=== PATIENT | male | born 1965 | race Asian ===

== ENCOUNTER 2024-12-23 13:22 | Inpatient (IN) | payer MEDICAID ==
[~2024-12-23] VITALS: Ht 162.6 cm; Wt 84.8 kg
[2024-12-23 14:05] LABS: PLATELET COUNT (AUTO) 103 K/uL (150-450); RED BLOOD CELL COUNT(AUTO) 4.44 MIL/uL (4.50-5.90); RED CELL DISTRIBUTION WIDTH 12.2 % (11.5-14.5); WHITE BLOOD COUNT (AUTO) 10.0 K/uL (4.5-11.0)
[2024-12-23 14:17] LABS: CALCIUM, TOTAL 8.0 mg/dL (8.8-10.5); CREATININE 0.65 mg/dL (0.60-1.30); GLOMERULAR FILTR. RATE CALC > 60 mL/min (>60); GLUCOSE,RANDOM 193 mg/dL (70-110); UREA NITROGEN, BLOOD 9 mg/dL (7-18)
[2024-12-23 14:18] LABS: SODIUM SERUM 115 mmol/L (136-145)
[2024-12-23 14:21] LABS: ASPARTATE AMINOTRANSFERASE 136 U/L (15-37); TOTAL PROTEIN, SERUM 7.9 g/dL (6.4-8.2)
[2024-12-23 14:22] LABS: ALCOHOL, BLOOD (SERUM) < 3 mg/dL (0-10)
[2024-12-23 14:41] LABS: APPEARANCE,URINE CLEAR (CLEAR); GLUCOSE, URINE (UA) TRACE mg/dL (NEGATIVE); LEUKOCYTE ESTERASE ,URINE MODERATE (NEGATIVE); NITRATE,URINE NEGATIVE (NEGATIVE); OCCULT BLOOD,URINE TRACE (NEGATIVE); PH,URINE DRUG SCREEN 7.0 (5.0-8.0); SPECIFIC GRAVITIY, URINE 1.005 (1.003-1.030)
[2024-12-23] MEDS: ONDANSETRON HCL 4 MG/2 ML VIAL IVP ONE (14:45)
[2024-12-23] MEDS: LORazepam 2 MG/ML VIAL IVP ONE (14:45)
[2024-12-23 14:48] LABS: ALCOHOL, URINE DRUG SCREEN NEGATIVE (NEGATIVE); AMPHET/METH SCREEN,URINE NEGATIVE (NEGATIVE); BARBITURATE SCREEN, URINE NEGATIVE (NEGATIVE); CANNABINOID SCREEN,URINE NEGATIVE (NEGATIVE); COCAINE SCREEN,URINE NEGATIVE (NEGATIVE); METHADONE SCREEN, URINE NEGATIVE (NEGATIVE)
[2024-12-23 14:58] LABS: TROPONIN I-HIGH SENSITIVITY 18 ng/L (<76)
[2024-12-23] MEDS: MAGNESIUM SULFATE 2 GM, MVI, ADULT NO.1 WITH VIT K 10 ML, THIAMINE 100 MG, FOLIC ACID 1... IV ONE (15:08)
[2024-12-23] MEDS ORDERED: ACETAMINOPHEN 325 MG TABLET PO PRN (15:45)
[2024-12-23] MEDS ORDERED: ONDANSETRON HCL 4 MG/2 ML VIAL IVP PRN (15:45)
[2024-12-23] MEDS: HEPARIN SODIUM,PORCINE 5,000 UNITS/ML VIAL SQ SCH (16:12)
[2024-12-23 17:09] LABS: CALCIUM, TOTAL 8.0 mg/dL (8.8-10.5); CREATININE 0.55 mg/dL (0.60-1.30); GLOMERULAR FILTR. RATE CALC > 60 mL/min (>60); GLUCOSE,RANDOM 175 mg/dL (70-110); UREA NITROGEN, BLOOD 8 mg/dL (7-18)
[2024-12-23 17:14] LABS: SODIUM SERUM 119 mmol/L (136-145)
[2024-12-23] MEDS: WATER IV ONE (17:47)
[2024-12-23] MEDS: DEXTROSE 5% IV ONE (17:47)
[2024-12-23] MEDS: CHLORPROMAZINE HCL IV ONE (17:47)
[2024-12-23] MEDS: CefTRIAXone 1 GM/DEXTROSE 50 ML IV SCH (18:12)
[2024-12-23 20:00] VITALS: BP 103/72; PULSE 68; RESP 18; TEMP 97.5; O2SAT 99
[2024-12-23] MEDS: DOCUSATE SODIUM 100 MG CAPSULE PO SCH (20:59)
[2024-12-23] MEDS ORDERED: MAGNESIUM SULFATE 2 GM/WATER 50 ML IV PRN (21:15)
[2024-12-23] MEDS ORDERED: MAGNESIUM OXIDE 400 MG TABLET PO PRN (21:15)
[2024-12-23] MEDS: THIAMINE 100 MG TABLET PO SCH (21:15)
[2024-12-23] MEDS ORDERED: MAGNESIUM SULFATE 4 GM/WATER 100 ML IV PRN (21:15)
[2024-12-23] MEDS: VITAMIN B COMPLEX WITH C TABLET PO SCH (22:00)
[2024-12-23 22:04] LABS: CALCIUM, TOTAL 7.9 mg/dL (8.8-10.5); CREATININE 0.57 mg/dL (0.60-1.30); GLOMERULAR FILTR. RATE CALC > 60 mL/min (>60); GLUCOSE,RANDOM 185 mg/dL (70-110); UREA NITROGEN, BLOOD 8 mg/dL (7-18)
[2024-12-23] MEDS: LORazepam 2 MG/ML VIAL IVP PRN (22:07)
[2024-12-23 22:09] LABS: SODIUM SERUM 121 mmol/L (136-145)
[2024-12-23 23:42] VITALS: BP 122/92; PULSE 98; RESP 22; TEMP 97.5; O2SAT 98
[2024-12-24] MEDS ORDERED: SODIUM CHLORIDE 0.9% 500 ML IV ONE (01:33)
[2024-12-24] MEDS: POTASSIUM CHL 10 MEQ/WATER 50 ML IV PRN (01:43)
[2024-12-24 03:18] VITALS: BP 144/76; PULSE 98; RESP 20; TEMP 97.8; O2SAT 97
[2024-12-24 06:23] LABS: PLATELET COUNT (AUTO) 106 K/uL (150-450); RED BLOOD CELL COUNT(AUTO) 4.15 MIL/uL (4.50-5.90); RED CELL DISTRIBUTION WIDTH 12.3 % (11.5-14.5); WHITE BLOOD COUNT (AUTO) 8.6 K/uL (4.5-11.0)
[2024-12-24 06:38] LABS: CALCIUM, TOTAL 7.9 mg/dL (8.8-10.5); CREATININE 0.65 mg/dL (0.60-1.30); GLOMERULAR FILTR. RATE CALC > 60 mL/min (>60); GLUCOSE,RANDOM 148 mg/dL (70-110); SODIUM SERUM 125 mmol/L (136-145); UREA NITROGEN, BLOOD 10 mg/dL (7-18)
[2024-12-24] MEDS: DEXTROSE 5%-WATER 1,000 ML IV ONE (07:54)
[2024-12-24 08:19] VITALS: BP 117/80; PULSE 112; RESP 18; TEMP 97.5; O2SAT 96
[2024-12-24] MEDS: POTASSIUM CHLORIDE 20 MEQ ER TABLET PO PRN (09:36)
[2024-12-24 11:18] VITALS: BP 108/73; PULSE 86; RESP 18; TEMP 97.7; O2SAT 97
[2024-12-24 11:29] LABS: CALCIUM, TOTAL 8.1 mg/dL (8.8-10.5); CREATININE 0.76 mg/dL (0.60-1.30); GLOMERULAR FILTR. RATE CALC > 60 mL/min (>60); GLUCOSE,RANDOM 243 mg/dL (70-110); UREA NITROGEN, BLOOD 11 mg/dL (7-18)
[2024-12-24 11:30] LABS: SODIUM SERUM 123 mmol/L (136-145)
[2024-12-24] MEDS: DIAZEPAM 5 MG/ML 2 ML SYRINGE IVP SCH (12:14)
[2024-12-24 17:17] LABS: CALCIUM, TOTAL 8.0 mg/dL (8.8-10.5); CREATININE 0.71 mg/dL (0.60-1.30); GLOMERULAR FILTR. RATE CALC > 60 mL/min (>60); GLUCOSE,RANDOM 207 mg/dL (70-110); UREA NITROGEN, BLOOD 10 mg/dL (7-18)
[2024-12-24 17:45] LABS: SODIUM SERUM 124 mmol/L (136-145)
[2024-12-24] MEDS ORDERED: SODIUM CHLORIDE 0.9% 250 ML IV ONE (17:58)
[2024-12-24 19:08] VITALS: BP 142/92; PULSE 96; RESP 19; TEMP 98.6; O2SAT 95
[2024-12-24 23:31] VITALS: BP 148/94; PULSE 105; RESP 20; TEMP 97.5; O2SAT 96
[2024-12-25 03:35] VITALS: BP 133/94; PULSE 112; RESP 22; TEMP 97.8; O2SAT 96
[2024-12-25 07:08] VITALS: BP 138/93; PULSE 118; RESP 19; TEMP 98.8; O2SAT 97
[2024-12-25] MEDS ORDERED: DEXTROSE 50%-WATER 25 GM/50 ML SYRINGE IVP PRN (10:00)
[2024-12-25 10:15] LABS: CALCIUM, TOTAL 9.2 mg/dL (8.8-10.5); CREATININE 0.79 mg/dL (0.60-1.30); GLOMERULAR FILTR. RATE CALC > 60 mL/min (>60); GLUCOSE,RANDOM 137 mg/dL (70-110); SODIUM SERUM 133 mmol/L (136-145); UREA NITROGEN, BLOOD 12 mg/dL (7-18)
[2024-12-25] MEDS ORDERED: MAGNESIUM SULFATE 2 GM, MVI, ADULT NO.1 WITH VIT K 10 ML, THIAMINE 100 MG, FOLIC ACID 1... IV SCH (10:15)
[2024-12-25 11:11] VITALS: BP 133/90; PULSE 111; RESP 20; TEMP 98.1; O2SAT 97
[2024-12-25] MEDS: MAGNESIUM SULFATE 2 GM, MVI, ADULT NO.1 WITH VIT K 10 ML, THIAMINE 100 MG, FOLIC ACID 1... IV SCH (11:34)
[2024-12-25] MEDS: INSULIN LISPRO 100 UNITS/ML SQ PRN (12:29)
[2024-12-25 12:46] LABS: GLUCOMETER DEV NAME(LOC) 5S.2D; GLUCOSE,POINT OF CARE 201 MG/DL (70-110)
[2024-12-25 16:14] VITALS: BP 146/96; PULSE 114; RESP 20; TEMP 98; O2SAT 97
[2024-12-25 20:03] VITALS: BP 144/99; PULSE 97; RESP 19; TEMP 97.7; O2SAT 98
[2024-12-26 00:33] VITALS: BP 150/96; PULSE 104; RESP 20; TEMP 97.9; O2SAT 95
[2024-12-26 04:10] VITALS: BP 131/91; PULSE 101; RESP 21; TEMP 97.5; O2SAT 94
[2024-12-26 07:05] VITALS: BP 147/95; PULSE 104; RESP 20; TEMP 97.5; O2SAT 96
[2024-12-26 07:10] LABS: GLUCOMETER DEV NAME(LOC) 5S.1D; GLUCOSE,POINT OF CARE 130 MG/DL (70-110)
[2024-12-26 10:03] LABS: CALCIUM, TOTAL 8.9 mg/dL (8.8-10.5); CREATININE 0.54 mg/dL (0.60-1.30); GLOMERULAR FILTR. RATE CALC > 60 mL/min (>60); GLUCOSE,RANDOM 126 mg/dL (70-110); SODIUM SERUM 139 mmol/L (136-145); UREA NITROGEN, BLOOD 13 mg/dL (7-18)
[2024-12-26 10:14] LABS: PHOSPHORUS 4.8 mg/dL (2.5-4.9)
[2024-12-26 10:55] VITALS: BP 148/91; PULSE 98; RESP 20; TEMP 98.2; O2SAT 98
[2024-12-26] MEDS: *CLINICAL-MEROPENEM DOSING CLINICAL ONE (12:17)
[2024-12-26] MEDS: MEROPENEM 1 GM in SODIUM CHLORIDE 0.9% 50 ML IV SCH (13:34)
[2024-12-26 16:01] VITALS: BP 154/106; PULSE 99; RESP 19; TEMP 97.7; O2SAT 96
[2024-12-26 18:20] LABS: GLUCOMETER DEV NAME(LOC) 5S.1D; GLUCOSE,POINT OF CARE 134 MG/DL (70-110)
[2024-12-26 20:31] VITALS: BP 154/86; PULSE 88; RESP 20; TEMP 97.5; O2SAT 98
[2024-12-27 00:49] VITALS: BP 159/88; PULSE 87; RESP 20; TEMP 98; O2SAT 98
[2024-12-27 05:00] VITALS: BP 151/91; PULSE 85; RESP 20; TEMP 97.6; O2SAT 97
[2024-12-27 05:21] LABS: GLUCOMETER DEV NAME(LOC) 5S.1D; GLUCOSE,POINT OF CARE 183 MG/DL (70-110)
[2024-12-27 07:07] LABS: PLATELET COUNT (AUTO) 230 K/uL (150-450); RED BLOOD CELL COUNT(AUTO) 4.78 MIL/uL (4.50-5.90); RED CELL DISTRIBUTION WIDTH 12.5 % (11.5-14.5); WHITE BLOOD COUNT (AUTO) 7.7 K/uL (4.5-11.0)
[2024-12-27 07:33] LABS: CALCIUM, TOTAL 8.8 mg/dL (8.8-10.5); CREATININE 0.58 mg/dL (0.60-1.30); GLOMERULAR FILTR. RATE CALC > 60 mL/min (>60); GLUCOSE,RANDOM 138 mg/dL (70-110); SODIUM SERUM 139 mmol/L (136-145); UREA NITROGEN, BLOOD 14 mg/dL (7-18)
[2024-12-27 07:41] LABS: PHOSPHORUS 4.2 mg/dL (2.5-4.9)
[2024-12-27 08:01] VITALS: BP 134/94; PULSE 86; RESP 18; TEMP 97.7; O2SAT 98
[2024-12-27] MEDS ORDERED: CHLO5CAP4 PO (10:57)
[2024-12-27] MEDS ORDERED: B-CO1TAB3 PO (10:57)
[2024-12-27] MEDS ORDERED: SULF-261 PO (10:57)
[2024-12-27] MEDS ORDERED: THIA100T80 PO (10:57)
[2024-12-27 11:29] VITALS: BP 151/93; PULSE 78; RESP 18; TEMP 97.7; O2SAT 97
[2024-12-27 12:20] LABS: GLUCOMETER DEV NAME(LOC) 5S.1D; GLUCOSE,POINT OF CARE 202 MG/DL (70-110)
[2024-12-27] MEDS ORDERED: HYDROCODONE/ACETAMINOPHEN 5-325 MG TABLET PO PRN (13:15)
[2024-12-27] MEDS ORDERED: ALBUTEROL SULFATE 2.5 MG/0.5 ML NEB SOLUTION NEB PRN (13:15)
[2024-12-27] MEDS ORDERED: MORPHINE SULFATE 4 MG/ML VIAL IVP PRN (13:15)
[2024-12-27] MEDS ORDERED: IPRATROPIUM BROMIDE 0.5 MG/2.5 ML NEB SOLUTION NEB PRN (13:15)
[2024-12-27] MEDS ORDERED: BISACODYL 10 MG RECTAL RECTAL SUPPOSITORY PR PRN (13:15)
[2024-12-27] MEDS ORDERED: ZOLPIDEM TARTRATE 5 MG TABLET PO PRN (13:15)
[2024-12-27] MEDS ORDERED: ONDANSETRON HCL 4 MG/2 ML VIAL IVP PRN (13:15)
[2024-12-27] MEDS ORDERED: MAGNESIUM HYDROXIDE SUSPENSION 30 ML UDCUP PO PRN (13:15)
[2024-12-27] MEDS ORDERED: DOCUSATE SODIUM 100 MG CAPSULE PO SCH (21:00)
[2024-12-27 21:55] LABS: GLUCOMETER DEV NAME(LOC) 5N.1D; GLUCOSE,POINT OF CARE 159 MG/DL (70-110)
[2024-12-28] MEDS ORDERED: PANTOPRAZOLE SODIUM 40 MG DR TABLET PO SCH (09:00)
== END 2024-12-27 13:30 | disposition home or self-care (01) | DRG 426 ==
LOC: EMS 13:30 → EDH 15:41 → 5S 19:09
PROVIDERS: ADMIT Internal Medicine; ATTEND Internal Medicine
DX: E87.1 Hypo-osmolality and hyponatremia (principal); K85.90 Acute pancreatitis without necrosis or infection, unspecified; F10.931 Alcohol use, unspecified with withdrawal delirium; D69.6 Thrombocytopenia, unspecified; K70.10 Alcoholic hepatitis without ascites; K29.20 Alcoholic gastritis without bleeding; E87.6 Hypokalemia; E83.42 Hypomagnesemia; B96.20 Unspecified Escherichia coli [E. coli] as the cause of diseases classified elsewhere; F41.9 Anxiety disorder, unspecified; K21.9 Gastro-esophageal reflux disease without esophagitis; N39.0 Urinary tract infection, site not specified; Y90.0 Blood alcohol level of less than 20 mg/100 ml; Y90.9 Presence of alcohol in blood, level not specified; Z79.899 Other long term (current) drug therapy
CPT/HCPCS: 71045; 74176; 80048; 80076; 80307; 81001; 82040; 82533; 82962; 83690; 83735; 83930; 83935; 84100; 84133; 84300; 84443; 84484; 85025; 87077; 87086; 87186; 93005; 99285; G0480; J0696; J1630; J1644; J2060; J2185; J2405; J3230; J3411; J3475; J3480; J3490; J7030; J7040; J7050; J7060; 36415-L1; 36415-TC